=== PATIENT | male | born 1930 ===

== ENCOUNTER 2018-03-26 15:50 | Emergency (ER) | payer MEDICARE ==
[2018-03-26] MEDS ORDERED: cloNIDine 0.1 MG TAB ONE (17:03)
--- NOTE | 2018-03-26 17:09 | RAD ---
SINGLE VIEW OF THE CHEST: 03/26/18 COMPARISON: 08/19/11 HISTORY: Hypertension. FINDINGS: Single view of the chest shows a normal sized cardiomediastinal silhouette with atherosclerotic calci fications in the aorta. There is no evidence of consolidation, mass, or pleural effusion. Increased i nterstitial markings are present. IMPRESSION: 1. No evidence of acute cardiopulmonary disease. 2. Atherosclerotic disease. POS: CET
--- NOTE | 2018-03-26 17:13 | RAD ---
TWO VIEWS OF THE RIGHT HIP 03/26/18 COMPARISON: None. HISTORY: Right hip pain. FINDINGS: Two views of the right hip shows no evidence of acute fracture or dislocation. No soft tissue swellin g is seen. IMPRESSION: Unremarkable exam POS: CET
--- NOTE | 2018-03-26 17:14 | RAD ---
SINGLE VIEW OF THE PELVIS: 03/26/18 COMPARISON: None. HISTORY: Right hip pain. FINDINGS: Single view of the pelvis shows no evidence of acute fracture or dislocation. No degenerative changes are seen in either hip. Moderate degenerative changes are seen in the lumbar spine. IMPRESSION: No evidence of acute osseous abnormality. POS: CET
[2018-03-26 17:17] LABS: #Monocytes 0.5 thou/uL (0.11-0.59); #Neutrophils 2.5 thou/uL (1.40-6.50); %Basophils 1.1 % (0.0-1.0); %Lymphocytes 24.8 % (21.0-51.0); %Monocytes 11.9 % (0.0-10.0); %Neutrophils 61.2 % (42.0-75.0); Hemoglobin 13.4 g/dL (14.0-18.0); Mean Corpuscular HGB CONC 32.9 g/dL (32.0-36.0); Mean Platelet Volume 9.4 fL (7.4-10.4); Platelet Count 202 thou/uL (130-400); RBC Distribution Width 14.4 % (11.5-14.5); Red Blood Cell (RBC) Count 4.07 mill/uL (4.70-6.10); White Blood Cell (WBC) Count 4.1 thou/uL (4.8-10.8)
[2018-03-26 17:32] LABS: Bilirubin Negative (Negative); Blood, Urine Trace (Negative); Clarity CLEAR (Clear); Glucose, Urine (Dipstick) Negative (Negative); Leukocyte Negative (Negative); Nitrite Negative (Negative); Protein, Urine (Dipstick) 300 mg/dL (Neg-Trace); Specific Gravity, Urine 1.011 (1.002-1.036); Urobilinogen 0.2 mg/dL (0.2-1.0); pH, Urine 5.5 (5.0-9.0)
[2018-03-26 17:35] LABS: Bacteria/HPF None Seen HPF (None Seen); Hyaline Casts/LPF 0-3 HYALINE CAST LPF (0-3 Hyaline); Pathc Cast-AUWi Flag 0.43 (0-2.49); RBC/HPF 0-3 HPF (0-3); Squamous Epithelial 0-3 HPF (0-3); WBC/HPF 0-3 HPF (0-3)
[2018-03-26 17:39] LABS: ALT (SGPT) 9 U/L (8-55); AST (SGOT) 15 U/L (5-34); Albumin 4.1 g/dL (3.4-4.8); Alkaline Phosphatase 118 U/L (40-150); Anion Gap 16 mmol/L (10-20); BUN (Urea Nitrogen) 25 mg/dL (8.4-25.7); Bilirubin, Total 0.5 mg/dL (0.2-1.2); CK (CPK) 96 U/L (30-200); Calc. Creatinine Clearance 0 mL/min (70-130); Calcium 9.8 mg/dL (7.8-10.44); Carbon Dioxide 16 mmol/L (23-31); Chloride 108 mmol/L (98-107); Estimated GFR-MDRD 24; Globulin 3.1 g/dL (2.4-3.5); Glucose 96 mg/dL (83-110); Lipase 38 U/L (8-78); Potassium 4.2 mmol/L (3.5-5.1); Protein, Total 7.2 g/dL (5.8-8.1); Sodium 136 mmol/L (136-145)
[2018-03-26 17:42] LABS: CKMB 3.4 ng/mL (0-6.6)
== END 2018-03-26 23:53 ==
LOC: ERS 15:50
DX: I11.0 Hypertensive heart disease with heart failure (principal); I50.9 Heart failure, unspecified; R53.1 Weakness; R60.0 Localized edema; M25.551 Pain in right hip; F32.9 Major depressive disorder, single episode, unspecified; Z79.899 Other long term (current) drug therapy
CPT/HCPCS: 36415; 71045; 72170; 80053; 81003; 81015; 82550; 82553; 83690; 83880; 85025; 93005; 94760

== ENCOUNTER 2018-03-27 14:10 | Inpatient (IN) | payer MEDICARE ==
[2018-03-27] MEDS ORDERED: Nitroglycerin 2% Ointment 1 INCH/1 GM Packet ONE (14:30)
[2018-03-27] MEDS ORDERED: Furosemide 40 MG/4 ML VIAL ONE (14:30)
[2018-03-27] MEDS ORDERED: niCARdipine 20MG In NaCl 20 MG/200 ML BAG ONE (14:30)
--- NOTE | 2018-03-27 14:51 | RAD ---
SINGLE VIEW OF THE CHEST: Comparison: 03-26-18 History: Hypertension, dyspnea. FINDINGS: Single view of the chest shows a normal sized cardiomediastinal silhouette with atherosclerotic calci fications in the aorta. There is no evidence of consolidation, mass, or pleural effusions. Degenerati ve changes are seen in the spine and shoulders. IMPRESSION: 1. No evidence of acute cardiopulmonary disease. 2. Atherosclerotic disease. POS: [facility]
[2018-03-27 15:11] LABS: Hemoglobin 12.9 g/dL (14.0-18.0); Mean Corpuscular HGB CONC 33.5 g/dL (32.0-36.0); Mean Corpuscular Hemoglobin 33.4 pg (27.0-31.0); Mean Corpuscular Volume 99.7 fL (78.0-98.0); Mean Platelet Volume 9.5 fL (7.4-10.4); Platelet Count 202 thou/uL (130-400); RBC Distribution Width 14.4 % (11.5-14.5); Red Blood Cell (RBC) Count 3.87 mill/uL (4.70-6.10); White Blood Cell (WBC) Count 4.3 thou/uL (4.8-10.8)
[2018-03-27 15:27] LABS: ALT (SGPT) 10 U/L (8-55); AST (SGOT) 14 U/L (5-34); Albumin 3.8 g/dL (3.4-4.8); Alkaline Phosphatase 115 U/L (40-150); Anion Gap 17 mmol/L (10-20); BUN (Urea Nitrogen) 23 mg/dL (8.4-25.7); Bilirubin, Total 0.6 mg/dL (0.2-1.2); CK (CPK) 70 U/L (30-200); Calc. Creatinine Clearance 0 mL/min (70-130); Calcium 9.4 mg/dL (7.8-10.44); Carbon Dioxide 19 mmol/L (23-31); Chloride 108 mmol/L (98-107); Estimated GFR-MDRD 26; Globulin 2.9 g/dL (2.4-3.5); Glucose 108 mg/dL (83-110); Lipase 46 U/L (8-78); Potassium 3.7 mmol/L (3.5-5.1); Protein, Total 6.7 g/dL (5.8-8.1); Sodium 140 mmol/L (136-145)
[2018-03-27 15:29] LABS: Band 2 % (5-11); Lymphocytes 12 % (21-51); MDiff Complete? YES; Monocytes 8 % (0-10); Neutrophil 78 % (42-75); PLT Morphology Comment Appears Adequate
[2018-03-27 15:49] LABS: CKMB 2.9 ng/mL (0-6.6)
--- NOTE | 2018-03-27 16:28 | ULT ---
BILATERAL LOWER EXTREMITY VENOUS ULTRASOUND WITH DOPPLER: Date: 03/27/18 HISTORY: Evaluate for thrombus. COMPARISON: None. TECHNIQUE: Bob scale, color flow, Doppler imaging, and spectral waveform analysis performed of the left and rig ht lower extremity deep venous system. FINDINGS: Bilaterally, there is compressibility, presence of flow, and augmentation in the common femoral, femo ral vein, and popliteal vein. There is flow in bilateral greater saphenous veins, profunda veins, and posterior tibial veins. IMPRESSION: No evidence of thrombus in the left or right lower extremity deep venous system. POS: [facility]
[2018-03-27] MEDS ORDERED: hydrALAZINE 20 MG/ML VIAL ONE (16:54)
[2018-03-27 19:05] LABS: Troponin I 0.178 ng/mL (< 0.028)
[2018-03-27] MEDS ORDERED: hydrALAZINE 20 MG/ML VIAL SLOW IVP PRN (19:43)
[2018-03-27] MEDS ORDERED: Ondansetron ODT 4 MG TAB SL PRN (19:45)
[2018-03-27] MEDS ORDERED: Ondansetron PF 4 MG/2 ML Vial IVP PRN ×2 (19:45→21:02)
[2018-03-27 20:00] LABS: CKMB 3.1 ng/mL (0-6.6)
--- NOTE | 2018-03-27 20:58 | PDOC.EVN ---
Event Note - Event Note Event Note: Date/Time: 03/27/182054 I personally evaluated the patient and discussed the management with Dr. Calderon this evening. H&P has been dictated by Dr Calderon but is not available for revoiew yet. Upon my exam just now, I find that Mr. Chow has had more episodes of abnormal speech, and complains of a headache. he is systolic BP is eelvated again. We are transferring him to the [facility], reinitiating IV nicardipine, and ordering a CT scan of his head.
[2018-03-27] MEDS ORDERED: Furosemide 40 MG/4 ML VIAL SLOW IVP SCH (21:00)
[2018-03-27] MEDS ORDERED: niCARdipine 40MG In NaCl 40 MG/200 ML BAG IVPB SCH (21:02)
[2018-03-27] MEDS ORDERED: Ondansetron ODT 4 MG TAB PO PRN (21:02)
[2018-03-27] MEDS ORDERED: Acetaminophen 650 MG Suppository PR PRN (21:02)
--- NOTE | 2018-03-27 22:37 | CT ---
CT OF BRAIN PERFORMED WITHOUT CONTRAST ENHANCEMENT: 03/27/18 HISTORY: Hypertensive emergency. Altered mental status. Confusion. COMPARISON: 08/19/11 study. There is generalized ventricular and sulcal prominence with decreased attenuation of the periventricu lar white matter consistent with some chronic white matter change. No signs of intracerebral hemorrhage or extra-axial fluid collections. Mastoid air cell and visualize d sinuses are clear. IMPRESSION: No acute intracranial abnormalities POS: [facility]
[2018-03-27] MEDS: niCARdipine HCl 25 MG in Sodium Chloride 0.9% 250 ML 240 ML IVPB SCH (23:07)
[2018-03-27] MEDS: Nitroglycerin 2% Ointment 1 INCH/1 GM Packet TOP SCH (23:10)
[2018-03-27 23:14] LABS: Troponin I 0.192 ng/mL (< 0.028)
[2018-03-27] MEDS: Acetaminophen 325 MG TAB PO PRN (23:31)
[2018-03-28 01:57] LABS: CKMB 3.6 ng/mL (0-6.6)
[2018-03-28 04:37] LABS: Anion Gap 14 mmol/L (10-20); BUN (Urea Nitrogen) 25 mg/dL (8.4-25.7); Calc. Creatinine Clearance 24 mL/min (70-130); Calcium 8.9 mg/dL (7.8-10.44); Carbon Dioxide 20 mmol/L (23-31); Chloride 109 mmol/L (98-107); Estimated GFR-MDRD 24; Glucose 107 mg/dL (83-110); Potassium 4.2 mmol/L (3.5-5.1); Sodium 139 mmol/L (136-145)
[2018-03-28] MEDS: Nitroglycerin 2% Ointment 1 INCH/1 GM Packet TOP SCH (05:47)
[2018-03-28] MEDS: Furosemide 20 MG/2 ML VIAL SLOW IVP SCH ×2 (06:04→14:30)
[2018-03-28 06:29] LABS: Troponin I 0.279 ng/mL (< 0.028)
--- NOTE | 2018-03-28 07:02 | HP ---
CODE STATUS: DNR/DNI. PRIMARY CARE PHYSICIAN: Dr. Jalloh. ADDITIONAL ATTENDING PHYSICIAN: Orlando Huntley MD RESIDENT: Rodrigo Calderon MD Historian is the patient's grandson. CHIEF COMPLAINT: Lower extremity swelling. HISTORY OF PRESENT ILLNESS: This is an 87-year-old gentleman seen in the ER yesterday for elevated blood pressures ranging all the way up to 270 mmHg systolic. He was controlled with oral medications at that time and transferred to [facility] for further rehab. The patient is needing rehab due to a decrease in functional status and mobility issues. The patient was received at the [facility] and found to be hypertensive once again. He was then transferred back to [facility] ED for further evaluation. Staff at the [facility] reports the patient was aphasic and nonresponsive. On presentation to ER, the patient was answering questions appropriately and showed no focal neurological deficits, but again had blood pressures extremely elevated at that time. The patient had mild headache as well as a decrease in kidney function with a creatinine of 2.3. Upon speaking with the patient, his main concern is the fact that he is no longer mobile and cannot perform many of his ADLs without this mobility. The patient denies change in vision, extremity weakness, or loss of sensation. In the ER, Nitro-Bid 1 inch transdermal, aspirin 325 mg, furosemide 40 mg IV, hydralazine 20 mg, and metoprolol 25 mg. The patient was also put on a Cardene drip, he was approximately on this for less than 1 hour before being titrated off. PAST MEDICAL HISTORY: 1. Insomnia. 2. Hypertension. 3. Depression. PAST SURGICAL HISTORY: Cardiac stents approximately 10 years ago. ALLERGIES: NO KNOWN DRUG ALLERGIES. MEDICATIONS: 1. Ambien 5 mg p.o. nightly. 2. Clonidine, unknown dose. FAMILY HISTORY: Significant for heart disease and type 2 diabetes. SOCIAL HISTORY: The patient denies any tobacco use. He states that he is an occasional drinker, and denies any illegal drug use. REVIEW OF SYSTEMS: GENERAL: Denies fever or chills. Denies night sweats. Endorses fatigue. EYES: Denies any changes. Denies eye pain. ENT: Denies any nasal congestion. Denies rhinorrhea. RESPIRATORY: Denies cough or sinus congestion. CV: Denies chest pain. Denies palpitations. Endorses lower extremity edema. GI: Denies nausea. Denies vomiting or diarrhea. : Denies incontinence. Denies dysuria. SKIN: Denies rashes or lesions. MUSCULOSKELETAL: Denies pain. Denies tenderness. Endorses swelling. NEUROLOGIC: Denies weakness. Denies numbness. Denies syncope. Denies seizures. PSYCHIATRIC: Denies anxiety, but endorses depression. PHYSICAL EXAMINATION: VITAL SIGNS: Blood pressure is 167/92, but it was initially at 227/114. Pulse 80 , respirations of 19, O2 saturation of 98% on room air, and a temperature of 98. GENERAL: He is alert and oriented x3, in no acute distress. He is very thin. Appropriately interactive. 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 ENT: Nasal mucosa and oropharynx within normal limits. NECK: Supple without lymphadenopathy. CV: Regular rate and rhythm without murmurs. RESPIRATIONS: Clear to auscultation bilaterally. ABDOMEN: Soft. Nontender to palpation. No masses. EXTREMITIES: Show 2+ pitting edema to bilateral lower extremities up to the knees. NEUROLOGIC: There are no focal deficits. Cranial nerves 2 through 12 are intact. SKIN: Warm and dry. No cyanosis. PSYCHIATRIC: Appropriate. LABORATORY DATA: Labs show a white blood cell count of 4.3, hemoglobin 12.9, hematocrit 38.6, and platelets of 202. Sodium is 140, potassium 3.7, chloride 108, carbon dioxide 19, BUN 23, creatinine 2.34, glucose 108, calcium 9.4, total bilirubin 0.6, AST 14, ALT 10, and alkaline phosphatase 114. Creatinine kinase 70. CK-MB is 2.9. Troponin is 0.161. BNP is 2700. Lipase 46. DIAGNOSTIC DATA: EKG shows left ventricular hypertrophy and occasional PVCs. Chest x-ray shows no evidence of acute cardiopulmonary disease. There is some chronic atherosclerotic disease. Venogram shows no evidence of thrombus in the left or right extremity deep venous system. ASSESSMENT AND PLAN: 1. Hypertensive emergency: The patient required Cardene drip in the ED, but has been titrated off since that time. He will be started on Lasix and metoprolol with breakthrough antihypertensive hydralazine overnight. The patient is asymptomatic currently with no focal neurological deficits. If the patient develops any of these, we will order a stat CT of the brain, no contrast. 2. Bilateral lower extremity edema likely secondary to a diagnosis of congestive heart failure. BNP of 2700. However, the patient does not have orthopnea or shortness of breath or dyspnea on exertion. We will order transthoracic echocardiogram for morning with likely Cardiology consult pending the results. 3. Indeterminate troponins likely secondary to demand ischemia. The patient has been extremely hypertensive over the last several days and occasionally tachycardic. We will trend troponins and consult Cardiology as necessary. The patient does not have chest pain, shortness of breath, palpitations, or dyspnea on exertion. Morphine, oxygen, nitrates p.r.n. overnight. 4. Acute kidney injury on chronic kidney disease, unknown what the patient's baseline kidney function is. We will continue to trend the creatinine with daily BMPs. We expect this to slowly worsen as he is on Lasix. 5. Hypertension. See above. 6. Depression. Continue home medications. Length of hospital stay, 2 plus days. Symptomatic management will be provided. History and physical exam as well as management discussed with Dr. Orlando Huntley. Job ID: [id number] [facility]
--- NOTE | 2018-03-28 08:11 | PDOC.FM ---
- Subjective Subjective: Patient resting in bed. Patient confused on exam stating he doesn't know where he is or how he got here. Patient endorses headache and urgency to urinate. Patient denies any pain or weakness at this time. Upon further questioning, patient knows name, , and time/year. - Objective Vital Signs & Weight: Vital Signs (12 hours) Temp BP Pulse Ox 03/28/18 08:00 97.8 F 03/28/18 04:00 98.4 F 03/28/18 01:00 98.0 F 03/28/18 00:21 95 03/27/18 20:44 216/101 H 03/27/18 20:30 206/104 H Weight Weight 82.5 kg Most Recent Monitor Data Heart Rate from ECG 80 NIBP 147/74 NIBP BP-Mean 98 Respiration from ECG 15 SpO2 99 I&O: 03/27/18 03/28/18 03/29/18 06:59 06:59 06:59 Intake Total 113 Output Total 375 Balance -262 Result Diagrams: 03/27/18 14:52 03/28/18 03:46 <Chantell Tejada - Last Filed: 03/28/18 08:51> - Objective Vital Signs & Weight: Vital Signs (12 hours) Temp Pulse Ox 03/28/18 08:00 97.8 F 03/28/18 04:00 98.4 F 03/28/18 01:00 98.0 F 03/28/18 00:21 95 Weight Weight 82.5 kg Most Recent Monitor Data Heart Rate from ECG 71 NIBP 156/73 NIBP BP-Mean 100 Respiration from ECG 17 SpO2 98 I&O: 03/27/18 03/28/18 03/29/18 06:59 06:59 06:59 Intake Total 113 150 Output Total 375 Balance -262 150 Result Diagrams: 03/27/18 14:52 03/28/18 03:46 <Girma Wilson - Last Filed: 03/28/18 10:15> Phys Exam - Physical Examination elderly appearing, no acute distress HEENT: PERRLA, moist MMs discharge from bilateral eyes, clear/white Neck: supple, full ROM Respiratory: no wheezing, clear to auscultation bilateral Cardiovascular: RRR Gastrointestinal: soft, non-tender, positive bowel sounds +1 pitting edema in bilateral feet Neurological: non-focal Deviation from normal: AXOX2 Skin: no rash <Chantell Tejada - Last Filed: 03/28/18 08:51> Dx/Plan (1) Hypertensive emergency Code(s): I16.1 - HYPERTENSIVE EMERGENCY Status: Acute (2) PEEWEE (acute kidney injury) Code(s): N17.9 - ACUTE KIDNEY FAILURE, UNSPECIFIED Status: Acute (3) CKD (chronic kidney disease) Code(s): N18.9 - CHRONIC KIDNEY DISEASE, UNSPECIFIED Status: Acute (4) Elevated brain natriuretic peptide (BNP) level Code(s): R79.89 - OTHER SPECIFIED ABNORMAL FINDINGS OF BLOOD CHEMISTRY Status : Acute (5) Elevated troponin Code(s): R74.8 - ABNORMAL LEVELS OF OTHER SERUM ENZYMES Status: Acute (6) Depression Code(s): F32.9 - MAJOR DEPRESSIVE DISORDER, SINGLE EPISODE, UNSPECIFIED Status : Acute (7) Gout Code(s): M10.9 - GOUT, UNSPECIFIED Status: Acute - Plan Plan: Hypertensive Emergency - on arrival patient's SBP 290, left sided weakness and aphasia - Patient started on cardine drip from ED, currently off drip - Patient had BPs 90/40 this AM, this cesar again to 189/99. Patient breifly put on cardine drip again. Will stop for now and keep SBP around 170s per Dr. Duncan. 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 8.55 on 03/28, slightly above baseline - GFR 24 - Will continue to monitor Elevated BNP - 2736 - last echo in 2011: EF 55-60% - Will obtain echo on 03/28 Elevated Troponins - 0.192 -> 0.279 - continue to monitor, likely due to demand ischemia - Echo for 03/28 Normocytic Anemia - hgb 12.9 - likely 2/2 to CKD - Will continue to monitor Gout - aware, patient does not take home meds for this - not in an acute flare Depression - aware, will restart home meds Dispo: continue to monitor BPs, CODE: DNR - MPOA to sign papers vte ppx: SCDs <Chantell Tejada - Last Filed: 03/28/18 08:51> Attending Addendum - Attending Addendum Date/Time: 03/28/18 1013 I personally evaluated the patient and discussed the management with Dr. Tejada I agree with the History, Examination, Assessment and Plan documented above with any addition or exceptions noted below. 87M admitted for hypertensive emergency. CT brain revealed no acute pathology. Blood pressures have been labile overnight. Will maintain range of 160-180 mmHg systolic and 80-100 mmHg diastolic. Continue CHF work up and verify home medications. Will likely need a rehab screen. <Girma Wilson - Last Filed: 03/28/18 10:15>
[2018-03-28 08:15] LABS: CKMB 3.1 ng/mL (0-6.6)
[2018-03-28] MEDS ORDERED: Prevnar 13-Val Conj/PF 0.5 ML SYRINGE IM ONE (09:00)
--- NOTE | 2018-03-28 13:30 | CON ---
DATE OF CONSULTATION: 03/28/2018 REASON FOR CONSULTATION: CCU admission. Hypertensive emergency. HISTORY OF THE PRESENT ILLNESS: This is an 87-year-old male, who was admitted from [facility] last night with severely elevated blood pressure ranging up to systolic at 270. He has been placed on a nicardipine drip. He has been having issues with weakness and also has an elevated creatinine. He is complaining of a headache currently. PAST MEDICAL HISTORY: 1. Psychophysiologic insomnia. 2. Hypertension. 3. Depression. PAST SURGICAL HISTORY: Coronary stent placement. ALLERGIES: NONE. MEDICATIONS PRIOR TO ADMISSION: 1. Ambien 5 mg nightly. 2. Clonidine 0.3 mg b.i.d. Additionally, he is on, 1. Furosemide 20 mg daily. 2. Celexa 10 mg daily. 3. Guaifenesin 200 mg every 6 hours as needed. 4. Hydralazine unknown dose 3 times daily. 5. Potassium chloride unknown dose daily. 6. Ramipril 5 mg daily. 7. Multivitamin daily. SOCIAL HISTORY: Does not smoke. Very occasionally drinks alcohol. REVIEW OF SYSTEMS: Otherwise negative. PHYSICAL EXAMINATION: VITAL SIGNS: Temperature 98.4, pulse 85, blood pressure currently 147/74, and O2 sat 99%. He is on a Cardene drip . HEENT: Pupils reactive. Sclerae are anicteric. Oropharynx is clear. NECK: No JVD. LUNGS: Clear without wheezing or rhonchi. CARDIOVASCULAR: S1 and S2, regular without audible murmur. ABDOMEN: Soft, nontender, and nondistended. EXTREMITIES: No clubbing, cyanosis, or edema. NEUROLOGIC: Has 5/5 strength throughout upper extremities and lower extremities, and follows all commands. He is alert and oriented. IMAGING STUDIES: Ultrasound of the leg shows no evidence of clot. His chest x-ray shows calcified aortic bulb, clear lung de la fuente. Normal heart size. No mass or effusion. LABORATORY DATA: Sodium 139, potassium 4.2, chloride 109, CO2 of 20, BUN 25, creatinine 2.5, and glucose 107. Troponin 0.27. TSH . White blood cell count 4.3, hematocrit 38.6, and platelet count 202. ASSESSMENT: Hypertension, out of control. The patient has evidence of renal insufficiency, which I am not sure it is acute or chronic. He also has an elevated troponin. RECOMMENDATIONS: 1. Blood pressure control, nicardipine drip with a goal of decrease in the mean arterial pressure about 25% over the first 24 hours and then slowly afterwards. 2. Supportive care, otherwise. The patient has do not attempt resuscitation order on the chart. Thank you for the referral. We will be happy to follow with you. Job ID: [id number]
[2018-03-28] MEDS: niCARdipine HCl 25 MG in Sodium Chloride 0.9% 250 ML 240 ML IVPB SCH ×2 (18:21→23:02)
[2018-03-29] MEDS: niCARdipine HCl 25 MG in Sodium Chloride 0.9% 250 ML 240 ML IVPB SCH ×4 (03:45→20:09)
[2018-03-29 05:24] VITALS: BMI 28.3
[2018-03-29 05:56] LABS: Anion Gap 13 mmol/L (10-20); BUN (Urea Nitrogen) 25 mg/dL (8.4-25.7); Calc. Creatinine Clearance 23 mL/min (70-130); Calcium 8.7 mg/dL (7.8-10.44); Carbon Dioxide 20 mmol/L (23-31); Chloride 109 mmol/L (98-107); Estimated GFR-MDRD 24; Glucose 89 mg/dL (83-110); Potassium 3.8 mmol/L (3.5-5.1); Sodium 138 mmol/L (136-145)
--- NOTE | 2018-03-29 06:04 | PDOC.FM ---
- Subjective Subjective: Patient resting comfortably in bed. Patient now AXOX3. No complaints or concerns. Patient states his headache has improved as compared to yesterday. Denies SOB, chest pain, abdominal pain, fever/chills, NVD. Patient did have garcía placed last night due to constant feeling of needing to urinate. Patient states he has felt relief after getting garcía placed. - Objective Vital Signs & Weight: Vital Signs (12 hours) Temp Pulse Ox 03/29/18 04:00 98.2 F 03/29/18 00:00 98.0 F 03/28/18 20:00 98.6 F 94 L Weight Weight 81.8 kg Most Recent Monitor Data Heart Rate from ECG 71 NIBP 165/72 NIBP BP-Mean 103 Respiration from ECG 16 SpO2 96 I&O: 03/27/18 03/28/18 03/29/18 06:59 06:59 06:59 Intake Total 113 1231 Output Total 375 2606 Balance -262 -5809 Result Diagrams: 03/27/18 14:52 03/29/18 05:11 <Chantell Tejada - Last Filed: 03/29/18 08:01> - Objective Vital Signs & Weight: Vital Signs (12 hours) Temp Pulse BP Pulse Ox 03/29/18 08:27 84 191/84 H 03/29/18 07:15 97 03/29/18 07:00 99.1 F 03/29/18 04:00 98.2 F 03/29/18 00:00 98.0 F 96 Weight Weight 81.8 kg Most Recent Monitor Data Heart Rate from ECG 68 NIBP 153/70 NIBP BP-Mean 97 Respiration from ECG 18 SpO2 96 I&O: 03/28/18 03/29/18 03/30/18 06:59 06:59 06:59 Intake Total 113 1231 360 Output Total 375 0824 420 Balance -957 -8724 -60 Result Diagrams: 03/27/18 14:52 03/29/18 05:11 <Girma Wilson - Last Filed: 03/29/18 10:33> Phys Exam - Physical Examination Constitutional: NAD HEENT: PERRLA, moist MMs, sclera anicteric Neck: full ROM Respiratory: clear to auscultation bilateral Cardiovascular: RRR Gastrointestinal: soft, non-tender, positive bowel sounds Musculoskeletal: no edema Neurological: non-focal Psychiatric: normal affect, A&O x 3 Skin: no rash <Chantell Tejada - Last Filed: 03/29/18 08:01> Dx/Plan (1) Hypertensive emergency Code(s): I16.1 - HYPERTENSIVE EMERGENCY Status: Acute (2) PEEWEE (acute kidney injury) Code(s): N17.9 - ACUTE KIDNEY FAILURE, UNSPECIFIED Status: Acute (3) CKD (chronic kidney disease) Code(s): N18.9 - CHRONIC KIDNEY DISEASE, UNSPECIFIED Status: Acute (4) Elevated brain natriuretic peptide (BNP) level Code(s): R79.89 - OTHER SPECIFIED ABNORMAL FINDINGS OF BLOOD CHEMISTRY Status : Acute (5) Elevated troponin Code(s): R74.8 - ABNORMAL LEVELS OF OTHER SERUM ENZYMES Status: Acute (6) Depression Code(s): F32.9 - MAJOR DEPRESSIVE DISORDER, SINGLE EPISODE, UNSPECIFIED Status : Acute (7) Gout Code(s): M10.9 - GOUT, UNSPECIFIED Status: Acute - Plan Plan: Hypertensive Emergency - on arrival patient's SBP 290, left sided weakness and aphasia - Patient started on cardine drip from ED, currently off drip - slowly decrease BP per Dr. Duncan's recommendations. Appreciate recs. 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 8.55 on 03/28, slightly above baseline -> 8.57 - Will continue to monitor Elevated BNP - 6677 - last echo in 2011: EF 55-60%; Echo on 03/28 showed EF 55-60%, diastolic dysfxn , LVH Elevated Troponins - 0.192 -> 0.279 - continue to monitor, likely due to demand ischemia Normocytic Anemia - hgb 12.9 - likely 2/2 to CKD - Will continue to monitor Gout - aware, patient does not take home meds for this - not in an acute flare Depression - aware, will restart home meds Dispo: continue to control BP, transfer to tele CODE: DNR - MPOA to sign papers vte ppx: SCDs <Chantell Tejada - Last Filed: 03/29/18 08:01> Attending Addendum - Attending Addendum Date/Time: 03/29/18 1030 I personally evaluated the patient and discussed the management with Dr. Tejada. I agree with the History, Examination, Assessment and Plan documented above with any addition or exceptions noted below. No c/o's. restarted on Cardene. BP 150/70's now. Added Amlodipine. Check Uric Acid. Renal Artery dopplers to eval resistant HTN in light of CKD IV previously on ELIZABETH. <Girma Wilson - Last Filed: 03/29/18 10:33>
[2018-03-29] MEDS ORDERED: Diabetic Tussin 200 MG/10 ML UDCUP PO PRN (06:07)
[2018-03-29] MEDS: Furosemide 20 MG/2 ML VIAL SLOW IVP SCH ×2 (06:26→13:50)
[2018-03-29] MEDS: Amlodipine 10 MG TAB PO SCH (08:27)
[2018-03-29] MEDS: Potassium Chloride 10 MEQ TAB PO SCH (08:27)
[2018-03-29] MEDS: Multivitamin W/ Minerals 1 TAB PO SCH (08:29)
--- NOTE | 2018-03-29 08:40 | PRG ---
DATE OF SERVICE: 03/29/2018 SUBJECTIVE: The patient remains in the CCU on a nicardipine drip. He complains of a slight headache and occasional chest pain. OBJECTIVE: VITAL SIGNS: On exam, his temperature is 99.1, pulse 68, and blood pressure 176/78. A 24-hour intake 1231, output 2485. HEENT: Unremarkable. NECK: No JVD. CHEST: Clear. CARDIAC: S1 and S2, regular. ABDOMEN: Soft. EXTREMITIES: No edema. LABORATORY DATA: Sodium 138, potassium 3.8, chloride 109, CO2 of 20, BUN 25, creatinine 2.5, and glucose 89. ASSESSMENT: 1. Hypertensive emergency. 2. Renal insufficiency. 3. Elevated troponin. PLAN: 1. Start calcium-channel clyde, amlodipine p.o. 2. Wean off drip. 3. May need additional oral antihypertensives for admission. Once he gets off the nicardipine, he could be transferred out to the telemetry floor. Job ID: [id number]
[2018-03-29] MEDS ORDERED: [UNRECOGNIZED DRUG - OTHER] PO SCH (09:00)
[2018-03-29] MEDS: Citalopram 10 MG TAB PO SCH (10:08)
--- NOTE | 2018-03-29 14:58 | PQF ---
DATE: 03-29-18 ATTN: DR. NY AHMADI Please exercise your independent, professional judgment in responding to the clarification form. Clinical indicators are provided on the bottom of this form for your review Please check appropriate box(s): HEART FAILURE: A. TYPE: [ ] Systolic / HFrEF [X ] Diastolic / HFpEF [ ] Combined Systolic / Diastolic B. ACUITY [ ] Acute [ ] Acute on Chronic [ X ] Chronic [ ] Other diagnosis [ ] Unable to determine In addition, please specify: Present on Admission (POA): [ X ] Yes [ ] No [ ] Unable to determine For continuity of documentation, please document condition throughout progress notes and discharge summary. Thank You. ER DX: ACUTE HTN EMERGENCY, ACUTE CHF, CHRONIC RENAL INSUFF, INDETERMINATE TROP BNP: 03-27-18: 2737.2 H&P: 03-27-18: BILATERAL LOWER EXTREMITY EDEMA LIKELY SECONDARY TO A DIAGNOSIS OF CHF. PN 03-29-18 DR. NY AHMADI: ECHO ON 03-28 SHOWED EF 55-60%, DIASTOLIC DYSFXN , LVH RISKS: ER: HX OF CHF, HTN, GOUT TREATMENTS: ER: HOME LASIX, LASIX IV IN ER MAR: LASIX IV, TOPROL XL (This form is maintained as a part of the permanent medical record) 2014 [employer]. All Rights Reserved MARY ELLEN [email or web address] Office: [phone] GLADYS
--- NOTE | 2018-03-29 19:07 | EKG ---
Test Reason : Blood Pressure : / mmHG Vent. Rate : 073 BPM Atrial Rate : 073 BPM P-R Int : 164 ms QRS Dur : 086 ms QT Int : 422 ms P-R-T Axes : 049 055 109 degrees QTc Int : 464 ms Sinus rhythm with occasional Premature ventricular complexes and Premature atrial complexes Voltage criteria for left ventricular hypertrophy Nonspecific T wave abnormality Prolonged QT Abnormal ECG When compared with ECG of 27-MAR-2018 14:26, (Unconfirmed) Premature atrial complexes are now Present QT has shortened Confirmed by Fe FU ([id number]) on 03/29/2018 7:07:23 PM Referred By: GALDINO tellez Confirmed By:Fe FU
[2018-03-30 05:21] LABS: Anion Gap 13 mmol/L (10-20); BUN (Urea Nitrogen) 25 mg/dL (8.4-25.7); Calc. Creatinine Clearance 24 mL/min (70-130); Carbon Dioxide 23 mmol/L (23-31); Chloride 108 mmol/L (98-107); Estimated GFR-MDRD 25; Glucose 103 mg/dL (83-110); Potassium 3.9 mmol/L (3.5-5.1); Sodium 140 mmol/L (136-145)
[2018-03-30] MEDS: niCARdipine HCl 25 MG in Sodium Chloride 0.9% 250 ML 240 ML IVPB SCH ×3 (05:21→23:00)
[2018-03-30] MEDS: Furosemide 20 MG/2 ML VIAL SLOW IVP SCH ×2 (05:23→13:26)
[2018-03-30] MEDS: Multivitamin W/ Minerals 1 TAB PO SCH (08:05)
[2018-03-30] MEDS: Amlodipine 10 MG TAB PO SCH (08:05)
[2018-03-30] MEDS: Potassium Chloride 10 MEQ TAB PO SCH (08:05)
--- NOTE | 2018-03-30 08:35 | PDOC.FM ---
- Subjective Subjective: Patient states he is doing well. No overnight events. In the course of the conversation, patient does seem to get distracted and is ramble about various topics not related to conversation. Patient is still AXOX3. Patient denies SOB, chest pain, headache, or LE edema - Objective Vital Signs & Weight: Vital Signs (12 hours) Temp Pulse BP 03/30/18 08:05 75 182/82 H 03/30/18 07:00 97.5 F L 03/30/18 04:00 98.4 F 03/30/18 00:00 98.2 F Weight Weight 79.3 kg Most Recent Monitor Data Heart Rate from ECG 78 NIBP 182/82 NIBP BP-Mean 115 Respiration from ECG 21 SpO2 94 I&O: 03/29/18 03/30/18 03/31/18 06:59 06:59 06:59 Intake Total 1231 1540 Output Total 7082 2715 875 Balance -1354 -1175 -875 Result Diagrams: 03/30/18 04:03 03/30/18 04:06 Phys Exam - Physical Examination elderly male HEENT: PERRLA, moist MMs Neck: supple, full ROM Respiratory: clear to auscultation bilateral Cardiovascular: RRR, no significant murmur, no rub Gastrointestinal: soft, non-tender, no distention, positive bowel sounds Musculoskeletal: no edema, pulses present Neurological: moves all 4 limbs Psychiatric: A&O x 3 Deviation from normal: distractable Dx/Plan (1) Hypertensive emergency Code(s): I16.1 - HYPERTENSIVE EMERGENCY Status: Acute (2) PEEWEE (acute kidney injury) Code(s): N17.9 - ACUTE KIDNEY FAILURE, UNSPECIFIED Status: Acute (3) CKD (chronic kidney disease) Code(s): N18.9 - CHRONIC KIDNEY DISEASE, UNSPECIFIED Status: Acute (4) Elevated brain natriuretic peptide (BNP) level Code(s): R79.89 - OTHER SPECIFIED ABNORMAL FINDINGS OF BLOOD CHEMISTRY Status : Acute (5) Elevated troponin Code(s): R74.8 - ABNORMAL LEVELS OF OTHER SERUM ENZYMES Status: Acute (6) Depression Code(s): F32.9 - MAJOR DEPRESSIVE DISORDER, SINGLE EPISODE, UNSPECIFIED Status : Acute (7) Gout Code(s): M10.9 - GOUT, UNSPECIFIED Status: Acute - Plan Plan: Hypertensive Emergency - on arrival patient's SBP 290, left sided weakness and aphasia - Patient started on cardine drip from ED, will continue to try to wean patient - slowly decrease BP per Dr. Duncan's recommendations. Appreciate recs. 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 8.55 on 03/28, slightly above baseline -> 8.57 - Will continue to monitor Elevated BNP - 2737 - last echo in 2011: EF 55-60%; Echo on 03/28 showed EF 55-60%, diastolic dysfxn , LVH Elevated Troponins - 0.192 -> 0.279 - continue to monitor, likely due to demand ischemia Normocytic Anemia - hgb 12.9-> 11.4 - likely 2/2 to CKD - Will continue to monitor Gout - aware, patient does not take home meds for this - uric acid 8.9 - not in an acute flare Depression - aware, will restart home meds Dispo: continue to control BP, transfer to tele CODE: DNR - MPOA to sign papers vte ppx: SCDs
[2018-03-30 08:43] LABS: #Basophils 0.1 thou/uL (0.0-0.2); #Eosinphils 0.1 thou/uL (0.0-0.7); #Lymphocytes 1.6 thou/uL (1.20-3.40); #Monocytes 1.3 thou/uL (0.11-0.59); #Neutrophils 7.7 thou/uL (1.40-6.50); %Basophils 0.7 % (0.0-1.0); %Eosinophils 0.8 % (0.0-10.0); %Lymphocytes 14.9 % (21.0-51.0); %Neutrophils 71.6 % (42.0-75.0); Hemoglobin 11.4 g/dL (14.0-18.0); Mean Corpuscular HGB CONC 32.9 g/dL (32.0-36.0); Mean Corpuscular Hemoglobin 33.1 pg (27.0-31.0); Mean Platelet Volume 10.5 fL (7.4-10.4); Platelet Count 184 thou/uL (130-400); RBC Distribution Width 14.2 % (11.5-14.5); Red Blood Cell (RBC) Count 3.43 mill/uL (4.70-6.10); White Blood Cell (WBC) Count 10.8 thou/uL (4.8-10.8)
--- NOTE | 2018-03-30 08:48 | ULT ---
RENAL ULTRASOUND WITH DOPPLER: DATE: 03/30/2018. CLINICAL HISTORY: Hypertension. FINDINGS: The right kidney measures about 8.9 x 4.7 x 4.7 cm and demonstrates no evidence for hydronephrosis or mass. The left kidney measures about 10.0 x 5.4 x 4.9 cm and demonstrates no evidence for hydronephrosis or solid mass. A simple-appearing cyst is seen involving the left kidney at the superior pole measuring about 1.7 cm. Color Doppler and spectral analysis of the abdominal aorta, main right and left renal arteries, and b ilateral renal arcuate system was performed. Peak systolic velocity of the abdominal aorta is 50.1 c m/s. Peak systolic velocity for the right renal artery is 20.4 cm/s. Evaluation of the left main re nal artery waveform is somewhat limited with suggestion of a diminished and dampened waveform. Ratio of right renal artery to aorta is 0.41 and left renal artery to aorta is 0.15. Resistive indices within the arcuate system 0.7 on the right and 0.76 on the left. IMPRESSION: 1. Limited exam with a suggestion of diminished flow and dampened waveform involving the left renal artery which could indicate renal artery stenosis. 2. Nonspecific elevation of renal resistive indices. POS: [facility]
--- NOTE | 2018-03-30 11:58 | EKG ---
Test Reason : HYPERTENSION Blood Pressure : / mmHG Vent. Rate : 075 BPM Atrial Rate : 075 BPM P-R Int : 156 ms QRS Dur : 086 ms QT Int : 466 ms P-R-T Axes : 027 049 084 degrees QTc Int : 520 ms Sinus rhythm with occasional Premature ventricular complexes Moderate voltage criteria for LVH, may be normal variant Prolonged QT Abnormal ECG Confirmed by DION RANDHAWA, KALYANI ([id number]), health editor SAM LERMA ([id number]) on 03/30/2018 11:57:57 AM Referred By: Confirmed By:KALYANI ASHLEY MD
[2018-03-30] MEDS ORDERED: Tamsulosin HCl 0.4 MG CAP PO SCH (12:45)
[2018-03-30] MEDS: Citalopram 10 MG TAB PO SCH (13:26)
--- NOTE | 2018-03-30 14:42 | PRG ---
DATE OF SERVICE: 03/30/2018 SERVICE: Pulmonary Medicine. INTERVAL HISTORY: The patient is doing fine from respiratory standpoint. Denies any current chest pain, fevers, or chills. He is breathing comfortably. His blood pressures remain refractory to multiple blood pressure medications. Otherwise, nursing reports no overnight events. PHYSICAL EXAMINATION: VITAL SIGNS: Afebrile, pulse 69, blood pressure 195/77, respirations 21, and saturation 98% on room air. GENERAL: The patient is awake, alert, in no apparent distress. LUNGS: Excellent air entry. There is no prolonged expiratory phase or wheezing appreciated. HEART: Normal rate and regular. ABDOMEN: Soft, nontender, and nondistended. Bowel sounds are positive. MUSCULOSKELETAL: No cyanosis or clubbing. No pitting in the bilateral lower extremities. NEUROLOGIC: Grossly nonfocal. LABORATORY DATA: WBC 10.8, hemoglobin 11.4, and platelets 184,000. Basic metabolic profile is essentially unremarkable. His creatinine is elevated to 2.47, which is perfectly stable. TSH 2.2, troponin 0.279, which is up trending, CK-MB 3.1. IMAGING STUDIES: Renal ultrasound demonstrates flow attenuation to the left kidney. Interestingly, the left kidney actually measures larger. ASSESSMENT: 1. Chronic kidney disease, stage 4. 2. Hypertension. 3. Tqh-BR-ipaetkwme myocardial infarction. DISCUSSION AND PLAN: We will continue to titrate his blood pressure medications. The patient's primary service is investigating renal artery stenosis. Pulmonary Critical Care will continue to follow along while the patient remains in this location. Job ID: [id number]
[2018-03-30] MEDS: hydrALAZINE 25 MG TAB PO SCH (15:09)
[2018-03-30] MEDS: Carvedilol 6.25 MG TAB PO SCH (17:44)
[2018-03-30] MEDS ORDERED: Ziprasidone 20 MG VIAL IM SCH (17:45)
[2018-03-30] MEDS ORDERED: Sterile Water 10 ML VIAL FS SCH (17:45)
[2018-03-31] MEDS: Ziprasidone 20 MG CAP PO SCH ×3 (01:11→20:40)
[2018-03-31] MEDS: hydrALAZINE 25 MG TAB PO SCH ×4 (01:11→20:41)
[2018-03-31 04:19] LABS: Anion Gap 14 mmol/L (10-20); BUN (Urea Nitrogen) 27 mg/dL (8.4-25.7); Calc. Creatinine Clearance 24 mL/min (70-130); Calcium 9.4 mg/dL (7.8-10.44); Carbon Dioxide 21 mmol/L (23-31); Chloride 107 mmol/L (98-107); Estimated GFR-MDRD 25; Glucose 103 mg/dL (83-110); Potassium 4.2 mmol/L (3.5-5.1); Sodium 138 mmol/L (136-145)
[2018-03-31] MEDS: Furosemide 100 MG/10 ML VIAL SLOW IVP SCH (06:21)
[2018-03-31] MEDS: niCARdipine HCl 25 MG in Sodium Chloride 0.9% 250 ML 240 ML IVPB SCH ×4 (06:24→21:42)
--- NOTE | 2018-03-31 06:43 | PDOC.FM ---
- Subjective Subjective: Patient resting in bed. Over the last 24 hrs the patient has become more irritable and aggressive toward the staff. The patient states he feels he is not happy with his treatment and states he feels as if he is "incarcerated." Patient endorses pain " all over" but is unable to further describe the pain. The patient is distractable and tangential but is AXOX3 today. Denies headache, vision changes, NVD, fever/chills. - Objective Vital Signs & Weight: Vital Signs (12 hours) Temp BP Pulse Ox 03/31/18 04:00 98.7 F 03/31/18 01:11 186/75 H 03/30/18 20:00 99.2 F 97 Weight Weight 79.3 kg Most Recent Monitor Data Heart Rate from ECG 82 NIBP 181/82 NIBP BP-Mean 115 Respiration from ECG 13 SpO2 98 I&O: 03/29/18 03/30/18 03/31/18 06:59 06:59 06:59 Intake Total 1231 1540 949 Output Total 6773 5672 2890 Balance -4724 -2885 -6791 Result Diagrams: 03/30/18 04:03 03/31/18 03:38 Phys Exam - Physical Examination Constitutional: NAD HEENT: PERRLA, moist MMs Neck: supple, full ROM Respiratory: clear to auscultation bilateral Cardiovascular: RRR, no significant murmur, no rub Gastrointestinal: soft, non-tender, no distention, positive bowel sounds Musculoskeletal: no edema, pulses present Neurological: non-focal Psychiatric: normal affect Deviation from normal: AXOX2 Dx/Plan (1) Hypertensive emergency Code(s): I16.1 - HYPERTENSIVE EMERGENCY Status: Acute (2) PEEWEE (acute kidney injury) Code(s): N17.9 - ACUTE KIDNEY FAILURE, UNSPECIFIED Status: Acute (3) CKD (chronic kidney disease) Code(s): N18.9 - CHRONIC KIDNEY DISEASE, UNSPECIFIED Status: Acute (4) Elevated brain natriuretic peptide (BNP) level Code(s): R79.89 - OTHER SPECIFIED ABNORMAL FINDINGS OF BLOOD CHEMISTRY Status : Acute (5) Elevated troponin Code(s): R74.8 - ABNORMAL LEVELS OF OTHER SERUM ENZYMES Status: Acute (6) Depression Code(s): F32.9 - MAJOR DEPRESSIVE DISORDER, SINGLE EPISODE, UNSPECIFIED Status : Acute (7) Gout Code(s): M10.9 - GOUT, UNSPECIFIED Status: Acute - Plan Plan: Hypertensive Emergency - on arrival patient's SBP 290, left sided weakness and aphasia - Patient started on cardine drip from ED, will continue to try to wean patient - slowly decrease BP per Dr. Duncan's recommendations. Appreciate recs. - pt currently on amlodipine and metoprolol and hydralazine; can consider increasing coreg dosage - Renal US showed possible Left Renal Artery Stenosis - Will consult IR for possible stenting; pt states he does not want any type of procedure like this. Will try to contact family and determine if patient is competent to make this decision. - tylenol for headache - will continue to monitor BPs PEEWEE on CKD IV - Cr. 8.55 on 03/28, slightly above baseline -> 8.57 - Will continue to monitor Elevated BNP - 2737 - last echo in 2011: EF 55-60%; Echo on 03/28 showed EF 55-60%, diastolic dysfxn , LVH Elevated Troponins - 0.192 -> 0.279 - continue to monitor, likely due to demand ischemia Normocytic Anemia - hgb 12.9-> 11.4 - likely 2/2 to CKD - Will continue to monitor Gout - aware, patient does not take home meds for this - uric acid 8.9 - not in an acute flare Depression - aware, will restart home meds Dispo: continue to control BP, transfer to tele CODE: DNR - MPOA to sign papers vte ppx: SCDs
[2018-03-31] MEDS: Carvedilol 6.25 MG TAB PO SCH ×2 (08:41→17:21)
[2018-03-31] MEDS: Potassium Chloride 10 MEQ TAB PO SCH (08:41)
[2018-03-31] MEDS ORDERED: Ziprasidone 20 MG VIAL IM PRN (09:02)
[2018-03-31] MEDS: Amlodipine 10 MG TAB PO SCH (09:56)
[2018-03-31] MEDS: Citalopram 10 MG TAB PO SCH (09:56)
[2018-03-31] MEDS: Tamsulosin HCl 0.4 MG CAP PO SCH (09:57)
[2018-03-31] MEDS: Multivitamin W/ Minerals 1 TAB PO SCH (09:57)
[2018-03-31] MEDS: Acetaminophen 325 MG TAB PO PRN (14:12)
--- NOTE | 2018-03-31 14:36 | PRG ---
DATE OF SERVICE: 03/31/2018 SERVICE: Pulmonary Medicine. INTERVAL HISTORY: The patient is doing really well from respiratory standpoint. Denies any current chest pain, fevers, or chills. There has been no interval change to his condition. Overnight, he got a dose of Geodon. He was heavily sedated all night long and did well. There were no significant agitation events. This morning, he is not agitated, but he is refusing to take any of his blood pressure medications. As such, he remains on his nicardipine drip. OBJECTIVE: VITAL SIGNS: Afebrile, pulse 92, blood pressure 178/73, respirations 23, and saturation 98% on room air. GENERAL: The patient is awake and alert, in no apparent distress. LUNGS: Excellent air entry. There are no prolonged expiratory phase, crackles, or wheezing. HEART: Normal rate and regular. ABDOMEN: Soft, nontender, and nondistended. Bowel sounds are positive. MUSCULOSKELETAL: No cyanosis or clubbing. No pitting in the bilateral lower extremities. NEUROLOGIC: Grossly nonfocal. LABORATORY FINDINGS: Basic metabolic profile is essentially stable. His creatinine is 4.24. ASSESSMENT: 1. Severe hypertension. 2. Chronic kidney disease, stage 4. 3. [id number] myocardial infarction. DISCUSSION AND PLAN: The patient would be well served by continuously taking his p.o. medications. That being said, we cannot force him into that. We are going to continue his low-dose Geodon, because today, he is not nearly as agitated as he was previously. Hopefully, this will translate him to him being more cooperative in the morning. We will continue the Cardene drip. The Primary Service is looking into renal artery stenosis. Once he is off nicardipine drip, he can successfully transition out of the ICU, but will remain here until that occurs. Job ID: [id number]
[2018-03-31] MEDS: traMADol HCl 50 MG TAB PO PRN (17:05)
[2018-04-01] MEDS: niCARdipine HCl 25 MG in Sodium Chloride 0.9% 250 ML 240 ML IVPB SCH (05:14)
[2018-04-01] MEDS: Furosemide 100 MG/10 ML VIAL SLOW IVP SCH (05:20)
[2018-04-01 05:29] LABS: Anion Gap 14 mmol/L (10-20); BUN (Urea Nitrogen) 33 mg/dL (8.4-25.7); Calc. Creatinine Clearance 24 mL/min (70-130); Calcium 9.2 mg/dL (7.8-10.44); Carbon Dioxide 20 mmol/L (23-31); Chloride 104 mmol/L (98-107); Estimated GFR-MDRD 26; Glucose 97 mg/dL (83-110); Potassium 4.2 mmol/L (3.5-5.1); Sodium 134 mmol/L (136-145)
--- NOTE | 2018-04-01 06:09 | PDOC.FM ---
- Subjective Subjective: Patient resting comfortably in bed. Overnight patient not voiding - refused bladder scan at first and refused garcía catheter. Patient straight cathed w/ return of 650ml. Patient refusing flomax. Patient AXOX2 on exam this morning, but per nursing he is waxing and waning. On exam, patient denies pain, but that he would like to go home. Patient states he does not want further care. - Objective Vital Signs & Weight: Vital Signs (12 hours) Temp Pulse BP Pulse Ox 04/01/18 04:00 98.5 F 04/01/18 00:00 98.4 F 03/31/18 20:41 92 183/82 H 03/31/18 20:00 98.0 F 03/31/18 19:50 97 Weight Weight 78.8 kg Most Recent Monitor Data Heart Rate from ECG 94 NIBP 164/77 NIBP BP-Mean 106 Respiration from ECG 19 SpO2 95 I&O: 03/30/18 03/31/18 04/01/18 06:59 06:59 06:59 Intake Total 0777 878 6998 Output Total 0225 2430 1285 Balance -1175 -1481 598 Result Diagrams: 03/30/18 04:03 04/01/18 04:41 Phys Exam - Physical Examination Constitutional: NAD elderly male HEENT: PERRLA, moist MMs Neck: supple, full ROM Respiratory: clear to auscultation bilateral Cardiovascular: RRR, no significant murmur, no rub Gastrointestinal: soft, non-tender, no distention, positive bowel sounds Musculoskeletal: no edema, pulses present Neurological: non-focal Deviation from normal: AXOX2 Dx/Plan (1) Hypertensive emergency Code(s): I16.1 - HYPERTENSIVE EMERGENCY Status: Acute (2) PEEWEE (acute kidney injury) Code(s): N17.9 - ACUTE KIDNEY FAILURE, UNSPECIFIED Status: Acute (3) CKD (chronic kidney disease) Code(s): N18.9 - CHRONIC KIDNEY DISEASE, UNSPECIFIED Status: Acute (4) Elevated brain natriuretic peptide (BNP) level Code(s): R79.89 - OTHER SPECIFIED ABNORMAL FINDINGS OF BLOOD CHEMISTRY Status : Acute (5) Elevated troponin Code(s): R74.8 - ABNORMAL LEVELS OF OTHER SERUM ENZYMES Status: Acute (6) Depression Code(s): F32.9 - MAJOR DEPRESSIVE DISORDER, SINGLE EPISODE, UNSPECIFIED Status : Acute (7) Gout Code(s): M10.9 - GOUT, UNSPECIFIED Status: Acute (8) Physical deconditioning Code(s): R53.81 - OTHER MALAISE Status: Acute - Plan Plan: Hypertensive Emergency - on arrival patient's SBP 290, left sided weakness and aphasia - Patient started on cardine drip from ED - due to patient refusal of care. Clonidine patch placed and will transfer patient to tele. - Will try to encourage patient to take BP meds: currently on amlodipine and metoprolol and hydralazine - Renal US showed possible Left Renal Artery Stenosis - Will consult IR for possible stenting; pt states he does not want any type of procedure like this. Will try to contact family and determine if patient is competent to make this decision. - tylenol for headache - will continue to monitor BPs - due to patient refusing care - will discuss further with family. Family is going to talk to palliative care who have been consulted on the case. Deconditioning - patient disoriented and rambling on exam; refusing medications - Corby LYON - Will discuss w/ family if patient competent to make medical decisions - Will encourage family to be there as much as possible to help orient patient PEEWEE on CKD IV - Cr. 8.55 on 03/28, slightly above baseline -> 8.57 - Will continue to monitor Elevated BNP - 7 - last echo in 2011: EF 55-60%; Echo on 03/28 showed EF 55-60%, diastolic dysfxn , LVH Elevated Troponins - 0.192 -> 0.279 - continue to monitor, likely due to demand ischemia Normocytic Anemia - hgb 12.9-> 11.4 - likely 2/2 to CKD - Will continue to monitor Gout - aware, patient does not take home meds for this - uric acid 8.9 - not in an acute flare Depression - aware, will restart home meds Dispo: continue to control BP, palliative care consult CODE: DNR - MPOA to sign papers vte ppx: SCDs
[2018-04-01] MEDS: Multivitamin W/ Minerals 1 TAB PO SCH (08:18)
[2018-04-01] MEDS: Potassium Chloride 10 MEQ TAB PO SCH (08:18)
[2018-04-01] MEDS: Amlodipine 10 MG TAB PO SCH (08:20)
[2018-04-01] MEDS: hydrALAZINE 25 MG TAB PO SCH ×3 (08:21→21:02)
[2018-04-01] MEDS: Carvedilol 6.25 MG TAB PO SCH ×2 (08:21→17:38)
[2018-04-01] MEDS: Citalopram 10 MG TAB PO SCH (08:21)
[2018-04-01] MEDS: Tamsulosin HCl 0.4 MG CAP PO SCH (08:21)
[2018-04-01] MEDS: Ziprasidone 20 MG CAP PO SCH ×2 (08:25→21:14)
[2018-04-01] MEDS: traMADol HCl 50 MG TAB PO PRN (08:30)
--- NOTE | 2018-04-01 08:47 | PRG ---
DATE OF SERVICE: 04/01/2018 SUBJECTIVE: My understanding is that Mr. Chow is refusing to take his home blood pressure medications as indicated and for that reason, nursing staff is now weaning of his nicardipine drip. OBJECTIVE: VITAL SIGNS: BP 170/50 CHEST: Clear. CARDIAC: S1 and S2 regular. ABDOMEN: Soft. EXTREMITIES: No overt edema. LABORATORY DATA: White blood cell count 10.8, hematocrit 34.6, and platelet count 184. Sodium 134, potassium 4.3, chloride 104, CO2 of 20, BUN 33, creatinine 2.4 , and glucose 97. ASSESSMENT: Hypertension, out of control. This is mainly a compliance issue and apparently the patient is not inclined to take his medicines at this time. RECOMMENDATIONS: 1. I would recommend stopping nicardipine drip and placing Catapres TTS patch on. 2. I agree with Palliative Care. I would transfer him to the floor. I would more or less ignore any blood pressure readings as the patient has made it clear he does not want this treated. Job ID: [id number] MTDD
[2018-04-01] MEDS ORDERED: cloNIDine 0.3mg/24 Hour PATCH TD SCH (09:00)
--- NOTE | 2018-04-01 12:13 | PRG ---
DATE OF SERVICE: 04/01/2018 ADDENDUM: This is an addendum to the note of Dr. Chantell Tejada. Mr. Chow is an 87-year-old white male patient, who was admitted several days ago with hypertensive emergency, likely hypertensive encephalopathy and TIA-type symptoms. His blood pressure was controlled appropriately, but he is now refusing all treatments. His family also desires that he receive no further aggressive care. We are therefore waiting placement. Given Mr. Chow's advanced age and general frailty, this is a likely good decision. We will honor of course his wishes and those of the family. Job ID: [id number]
[2018-04-01] MEDS ORDERED: Labetalol HCl 100 MG/20 ML VIAL SLOW IVP PRN (13:08)
[2018-04-01] MEDS: Acetaminophen 325 MG TAB PO PRN (21:15)
[2018-04-02] MEDS: Furosemide 100 MG/10 ML VIAL SLOW IVP SCH (05:48)
[2018-04-02 07:46] VITALS: TEMP 97.9
--- NOTE | 2018-04-02 08:27 | PDOC.FM ---
- Subjective Subjective: Patient resting in bed. No overnight events. When asked how patient was this morning, he stated "I'm alive." Denies pain or any acute issues. - Objective Vital Signs & Weight: Vital Signs (12 hours) Temp Pulse Resp BP BP BP Pulse Ox 04/02/18 07:45 97.9 F 82 18 176/77 H 100 04/02/18 00:04 77 150/68 H 04/01/18 21:02 85 178/76 H Weight Weight 84.368 kg Most Recent Monitor Data Heart Rate from ECG 80 NIBP 169/82 NIBP BP-Mean 111 Respiration from ECG 22 SpO2 96 I&O: 04/01/18 04/02/18 04/03/18 06:59 06:59 06:59 Intake Total 1883 688 Output Total 1285 1200 Balance 598 -512 Result Diagrams: 03/30/18 04:03 04/01/18 04:41 Phys Exam - Physical Examination elderly male HEENT: PERRLA, moist MMs, sclera anicteric Neck: supple Respiratory: clear to auscultation bilateral Cardiovascular: RRR, no significant murmur, no rub Gastrointestinal: soft, non-tender, no distention, positive bowel sounds Musculoskeletal: no edema, pulses present Neurological: non-focal Psychiatric: normal affect Deviation from normal: AXOX2 Skin: no rash Dx/Plan (1) Hypertensive emergency Code(s): I16.1 - HYPERTENSIVE EMERGENCY Status: Acute (2) PEEWEE (acute kidney injury) Code(s): N17.9 - ACUTE KIDNEY FAILURE, UNSPECIFIED Status: Acute (3) CKD (chronic kidney disease) Code(s): N18.9 - CHRONIC KIDNEY DISEASE, UNSPECIFIED Status: Acute (4) Elevated brain natriuretic peptide (BNP) level Code(s): R79.89 - OTHER SPECIFIED ABNORMAL FINDINGS OF BLOOD CHEMISTRY Status : Acute (5) Elevated troponin Code(s): R74.8 - ABNORMAL LEVELS OF OTHER SERUM ENZYMES Status: Acute (6) Depression Code(s): F32.9 - MAJOR DEPRESSIVE DISORDER, SINGLE EPISODE, UNSPECIFIED Status : Acute (7) Gout Code(s): M10.9 - GOUT, UNSPECIFIED Status: Acute (8) Physical deconditioning Code(s): R53.81 - OTHER MALAISE Status: Acute - Plan Plan: Hypertensive Emergency - on arrival patient's SBP 290, left sided weakness and aphasia - Patient started on cardine drip from ED - due to patient refusal of care. Clonidine patch placed and will transfer patient to tele. - Will try to encourage patient to take BP meds: currently on amlodipine and metoprolol and hydralazine - Renal US showed possible Left Renal Artery Stenosis - Will consult IR for possible stenting; pt states he does not want any type of procedure like this. Will try to contact family and determine if patient is competent to make this decision. - tylenol for headache - will continue to monitor BPs - due to patient refusing care and after family discussion with Palliative care - will discharge patient to [facility] Deconditioning - patient disoriented and rambling on exam; refusing medications - Corby LYON - Will encourage family to be there as much as possible to help orient patient - Pt to be discharged w/ [facility] PEEWEE on CKD IV - Cr. 8.55 on 03/28, slightly above baseline -> 8.57 - Will continue to monitor Elevated BNP - 2736 - last echo in 2011: EF 55-60%; Echo on 03/28 showed EF 55-60%, diastolic dysfxn , LVH Elevated Troponins - 0.192 -> 0.279 - continue to monitor, likely due to demand ischemia Normocytic Anemia - hgb 12.9-> 11.4 - likely 2/2 to CKD - Will continue to monitor Gout - aware, patient does not take home meds for this - uric acid 8.9 - not in an acute flare Depression - aware, will restart home meds Dispo: discharge later today to [facility] CODE: DNR vte ppx: SCDs
[2018-04-02] MEDS: hydrALAZINE 25 MG TAB PO SCH (11:12)
[2018-04-02] MEDS: Tamsulosin HCl 0.4 MG CAP PO SCH (11:12)
[2018-04-02] MEDS: Amlodipine 10 MG TAB PO SCH (11:12)
[2018-04-02] MEDS: Carvedilol 6.25 MG TAB PO SCH (11:12)
[2018-04-02] MEDS: Potassium Chloride 10 MEQ TAB PO SCH (11:12)
[2018-04-02 11:13] VITALS: BP 178/76
[2018-04-02] MEDS: Citalopram 10 MG TAB PO SCH (11:13)
[2018-04-02] MEDS: Multivitamin W/ Minerals 1 TAB PO SCH ×2 (11:13→11:20)
[2018-04-02] MEDS: Ziprasidone 20 MG CAP PO SCH (11:21)
--- NOTE | 2018-04-02 13:05 | PRG ---
DATE OF SERVICE: 04/02/2018 ADDENDUM: This is an addendum to the note of Dr. Chantell Tejada. Mr. Chow continues to refuse treatment. We will arrange for palliative care and discharge today. Job ID: [id number]
--- NOTE | 2018-04-03 14:01 | DIS ---
DATE OF ADMISSION: 03/27/2018 DATE OF DISCHARGE: 04/02/2018 RESIDENT: Chantell Tejada MD ADMITTING ATTENDING: Orlando Huntley MD DISCHARGE ATTENDING: Shaw Ayoub MD CONSULTS: Pulmonology, Hospice and Palliative Care. PROCEDURES: None. DISCHARGE MEDICATIONS: 1. Tylenol 650 mg oral every 4 hours as needed. 2. Norvasc 10 mg oral daily. 3. Coreg 12.5 mg oral twice daily with meals. 4. Clonidine patch 0.3 mg transdermal every week. 5. Hydralazine 25 mg oral 3 times daily. 6. Multivitamin 1 tablet oral daily. DISCONTINUED MEDICATIONS: None. HISTORY OF PRESENT ILLNESS/HOSPITAL COURSE: This is an 87-year-old male who presented in hypertensive emergency with left-sided weakness on presentation. The patient came in with blood pressures ranging from 299 systolic over 100 diastolic. The patient did not recall the incident prior to arriving at the hospital. The patient was admitted to the CCU and started on a Cardene drip. The patient's blood pressure remained high despite the Cardene drip. Coreg and amlodipine were started to help control the patient's blood pressure. The patient was weaned off Cardene several times, but had a high blood pressure and will be restarted on Cardene. The patient experienced deconditioning during his hospital stay and was refusing p.o. medications and monitoring. Echo performed showed EF 60-65%, grade 1/3 diastolic dysfunction, mild concentric LVH, mild MR and TR, aortic valve sclerosis. The patient stated multiple times that he did not want any further treatment and wanted to be at home. A renal ultrasound was performed that showed possible left renal artery stenosis. The patient was informed that we could contact IR for stent placement, but he stated that he did not want anything like that done. Discussed with the family options for pursuing treatment and they wished to make the patient comfortable at home. Palliative care was consulted and spoke with the family. The patient will be discharged to [facility]. DISPOSITION: Stable. DISCHARGE INSTRUCTIONS: 1. Location: Admit to [facility]. 2. Diet: Regular. 3. Activity: Ad-jackie. 4. Followup: Follow up with PCP within 7 days. Job ID: [id number] MTDD
== END 2018-04-02 12:40 | disposition hospice, home (50) | DRG 305 ==
LOC: ERS 14:10 → 2NO 16:02 → CCU 22:42 → T4-B 04-01 13:37
PROVIDERS: ADMIT Family Medicine; ATTEND Family Medicine
DX: I16.1 Hypertensive emergency (principal); I24.8 Other forms of acute ischemic heart disease; N17.9 Acute kidney failure, unspecified; I50.32 Chronic diastolic (congestive) heart failure; N18.4 Chronic kidney disease, stage 4 (severe); I13.0 Hypertensive heart and chronic kidney disease with heart failure and stage 1 through stage 4 chronic kidney disease, or unspecified chronic kidney disease; Z66 Do not resuscitate; Z53.29 Procedure and treatment not carried out because of patient's decision for other reasons; Z51.5 Encounter for palliative care; M10.9 Gout, unspecified; D63.1 Anemia in chronic kidney disease; F32.9 Major depressive disorder, single episode, unspecified; F51.04 Psychophysiologic insomnia; Z95.5 Presence of coronary angioplasty implant and graft; Z79.82 Long term (current) use of aspirin
CPT/HCPCS: 36415; 70450; 71045; 72170; 76700; 76770; 80048; 80053; 81003; 81015; 82550; 82553; 83690; 83880; 84443; 84484; 84550; 85025; 90471; 90670; 93005; 93010; 93306; 93970; 94760; 96365; 96375; A4216; G0009; G8996-GN-CJ; G8997-GN-CI; J0360; J1940; J2405; J3486; J7050; Q0162